=== PATIENT | female | born 2000 | race Caucasian/White ===

== ENCOUNTER 2022-09-19 14:44 | Emergency (ER) | payer OTHER ==
[2022-09-19 14:58] VITALS: BP 112/69; PULSE 69; RESP 16; TEMP 98.2; BMI 22.6
[2022-09-19] MEDS ORDERED: LIDOCAINE 5% TOPICAL PATCH TP ONE (16:17)
[2022-09-19] MEDS ORDERED: KETOROLAC TROMETHAMINE 30 MG/1 ML VIAL IM ONE (16:17)
[2022-09-19] MEDS ORDERED: LIDOCAINE 5% TOPICAL PATCH ONE (16:32)
[2022-09-19] MEDS ORDERED: KETOROLAC TROMETHAMINE 30 MG/1 ML VIAL ONE (16:32)
[2022-09-19] MEDS ORDERED: LIDOCAINE PATCH REMOVAL MC SCH (22:00)
== END 2022-09-19 18:06 | disposition home or self-care (01) ==
LOC: JERFT 14:44
PROC: 3E0233Z Introduction of Anti-inflammatory into Muscle, Percutaneous Approach (ICD-10-PCS; principal; 2022-09-19)
DX: M54.42 Lumbago with sciatica, left side (principal); G89.29 Other chronic pain; M79.10 Myalgia, unspecified site; M79.651 Pain in right thigh
CPT/HCPCS: 72100-TC-FY; 99284-25

== ENCOUNTER 2023-02-24 17:33 | Emergency (ER) | payer OTHER ==
[2023-02-24 17:50] VITALS: BP 132/76; PULSE 98; RESP 17; TEMP 98.1; BMI 25.7
[2023-02-24] MEDS ORDERED: ACETAMINOPHEN 500 MG TABLET (FP) PO ONE (18:56)
[2023-02-24] MEDS ORDERED: ACETAMINOPHEN 500 MG TABLET (FP) ONE (19:52)
[2023-02-24 19:56] LABS: BASO % 1.2 % (0-2.0); EOS % 2.4 % (0-4.5); HEMATOCRIT 36.1 % (32.4-45.2); HEMOGLOBIN 11.3 GM/dL (10.7-15.3); LYMPH % 47.5 % (8-40); MCH 23.4 pg (25.7-33.7); MCHC 31.4 g/dl (32.0-36.0); MEAN CELL VOLUME 74.6 fl (80-96); MEAN PLT VOLUME 7.6 fl (7.5-11.1); NEUT % 41.9 % (42.8-82.8); PLATELET COUNT 451 10^3/uL (134-434); RBC 4.84 M/mm3 (3.60-5.2); RDW 17.9 % (11.6-15.6); WHITE BLOOD COUNT 7.9 K/mm3 (4.0-10.0)
[2023-02-24 20:07] LABS: INR 0.97 (0.83-1.09); PROTHROMBIN TIME (PATIENT) 11.3 SEC (9.7-13.0)
[2023-02-24 20:13] LABS: POTASSIUM 4.4 mmol/L (3.5-5.1)
[2023-02-24 20:14] LABS: CALCIUM 8.9 mg/dL (8.5-10.1)
[2023-02-24 20:15] LABS: BLOOD UREA NITROGEN 12.5 mg/dL (7-18)
[2023-02-24 20:18] LABS: CREATININE 0.7 mg/dL (0.55-1.3)
== END 2023-02-24 21:16 | disposition home or self-care (01) ==
LOC: JERFT 17:33
DX: R07.89 Other chest pain (principal); R06.09 Other forms of dyspnea; R05.9 Cough, unspecified; R68.83 Chills (without fever); M54.9 Dorsalgia, unspecified; M79.601 Pain in right arm; M79.602 Pain in left arm
CPT/HCPCS: 36415; 71275-TC; 80048; 84703; 85025; 85379; 85610; 93005; 93010; 99285-25; Q9967

== ENCOUNTER 2024-01-21 17:25 | Emergency (ER) | payer OTHER ==
[2024-01-21 17:38] VITALS: BMI 27.4
[2024-01-21 19:04] LABS: BASO % 1.3 % (0-2.0); EOS % 2.3 % (0-4.5); HEMATOCRIT 41.2 % (32.4-45.2); HEMOGLOBIN 13.2 GM/dL (10.7-15.3); LYMPH % 40.2 % (8-40); MCH 23.9 pg (25.7-33.7); MCHC 31.9 g/dl (32.0-36.0); MEAN CELL VOLUME 74.8 fl (80-96); MEAN PLT VOLUME 7.1 fl (7.5-11.1); MONO % 7.7 % (3.8-10.2); NEUT % 48.5 % (42.8-82.8); PLATELET COUNT 486 10^3/uL (134-434); RBC 5.51 M/mm3 (3.60-5.2); RDW 18.5 % (11.6-15.6); WHITE BLOOD COUNT 6.4 K/mm3 (4.0-10.0)
[2024-01-21 19:11] LABS: INR 0.96 (0.83-1.09); PROTHROMBIN TIME (PATIENT) 10.9 SEC (9.7-13.0)
[2024-01-21 19:14] LABS: ACTIVATED PTT 31.3 SECONDS (25.2-36.5)
[2024-01-21 19:20] LABS: CHLORIDE 109 mmol/L (98-107); POTASSIUM 4.5 mmol/L (3.5-5.1); SODIUM 140 mmol/L (136-145)
[2024-01-21] MEDS ORDERED: ACETAMINOPHEN INJECTION 100 ML ONE (19:20)
[2024-01-21] MEDS ORDERED: ONDANSETRON 4 MG/2 ML VIAL ONE (19:20)
[2024-01-21 19:22] LABS: CALCIUM 9.2 mg/dL (8.5-10.1); EPI CELLS 34 /uL (0-25.1); HYALINE CASTS 2 /uL (0-3.1); PH,URINE 5.5 (5.0-8.0); URINE APPEARANCE CLOUDY; URINE BACTERIA 466 /uL (0-1359); URINE BILIRUBIN 1+ (NEGATIVE); URINE COLOR DK YELLOW; URINE GLUCOSE (UA) NEGATIVE (NEGATIVE); URINE KETONE TRACE (NEGATIVE); URINE LEUK ESTERASE 1+ (NEGATIVE); URINE NITRITE NEGATIVE (NEGATIVE); URINE PROTEIN 2+ (NEGATIVE); URINE RBC 9630 /uL (0-23.9); URINE WBC 168 /uL (0-25.8)
[2024-01-21 19:23] LABS: ANION GAP 6 mmol/L (4-13); BLOOD UREA NITROGEN 14.3 mg/dL (7-18); CO2 25 mmol/L (21-32); GLUCOSE,RANDOM 72 mg/dL (74-106)
[2024-01-21 19:26] LABS: CREATININE 1.2 mg/dL (0.55-1.3); SGOT/AST 16 U/L (15-37); SGPT/ALT 19 U/L (13-61)
[2024-01-21 19:27] LABS: BILIRUBIN,TOTAL 0.3 mg/dL (0.2-1)
[2024-01-21 19:29] LABS: ALK PHOS 88 U/L (45-117)
[2024-01-21] MEDS: SODIUM CHLORIDE 1,000 ML IV STA (19:31)
[2024-01-21] MEDS: ONDANSETRON 4 MG/2 ML VIAL IVPUSH ONE (19:32)
[2024-01-21] MEDS: ACETAMINOPHEN 1000 MG/100 ML BAG IVPB ONE (19:32)
[2024-01-21 20:00] LABS: HCG,QUALITATIVE URINE Negative
[2024-01-21 20:28] LABS: HIV INTERPRETATION NEGATIVE (NEGATIVE)
[2024-01-21 22:27] VITALS: BP 122/65; PULSE 82; RESP 18; TEMP 98
== END 2024-01-21 22:37 | disposition home or self-care (01) ==
LOC: JER 17:25
PROC: 3E033NZ Introduction of Analgesics, Hypnotics, Sedatives into Peripheral Vein, Percutaneous Approach (ICD-10-PCS; principal; 2024-01-21)
PROC: 3E0333Z Introduction of Anti-inflammatory into Peripheral Vein, Percutaneous Approach (ICD-10-PCS; 2024-01-21)
PROC: 3E0337Z Introduction of Electrolytic and Water Balance Substance into Peripheral Vein, Percutaneous Approach (ICD-10-PCS; 2024-01-21)
DX: N93.9 Abnormal uterine and vaginal bleeding, unspecified (principal); R10.32 Left lower quadrant pain; R11.0 Nausea
CPT/HCPCS: 36415; 76830-TC; 80053; 81003; 84702; 84703; 85025; 85610; 85730; 86803; 86850; 86900; 86901; 87389; 99284-25; J0131

== ENCOUNTER 2024-07-22 15:30 | Day surgery (SDC) | payer OTHER ==
[2024-07-22] MEDS: IRON SUCROSE INJECTION 300 MG in SODIUM CHLORIDE 250 ML IVPB ONE (15:50)
[2024-07-22 17:59] VITALS: RESP 20; TEMP 98.2
[2024-07-22 18:01] VITALS: BP 108/68; PULSE 83
== END 2024-07-22 18:00 | disposition home or self-care (01) ==
LOC: JONCNONCHE 15:30 → J7W 15:30 → JONCNONCHE 18:00
PROVIDERS: ATTEND Internal Medicine Hematology & Oncology
PROC: 3E033GC Introduction of Other Therapeutic Substance into Peripheral Vein, Percutaneous Approach (ICD-10-PCS; principal; 2024-07-22)
DX: E61.1 Iron deficiency (principal)
CPT/HCPCS: 96365; 96366; J1756

== ENCOUNTER 2024-10-16 21:34 | Emergency (ER) | payer OTHER ==
[2024-10-16 21:42] VITALS: BP 113/72; PULSE 86; RESP 17; TEMP 99.1; BMI 30.5
[2024-10-16] MEDS ORDERED: hydrOXYzine PAMOATE 50 MG CAPSULE (FP) ONE (22:19)
[2024-10-16] MEDS: guaiFENesin 600 MG TABLET.ER (FP) PO ONE (22:59)
== END 2024-10-16 23:25 | disposition home or self-care (01) ==
LOC: JER 21:34
DX: F41.9 Anxiety disorder, unspecified (principal)
CPT/HCPCS: 93005; 93010; 99283-25